=== PATIENT | male | born 1965 | race Caucasian/White ===

== ENCOUNTER 2020-10-14 11:46 | Outpatient (REF) | payer OTHER, SELFPAY | END 2020-10-14 11:47 | disposition home or self-care (01) | LOC: HO.WFDLDS 11:46 | PROVIDERS: Visit Provider Internal Medicine | DX: Z20.822 Contact with and (suspected) exposure to COVID-19 (principal) | CPT/HCPCS: 36415; C9803; U0003 ==

== ENCOUNTER 2020-12-27 10:39 | Outpatient (REF) | payer OTHER, SELFPAY | END 2020-12-27 10:40 | disposition home or self-care (01) | LOC: HO.WFDLDS 10:39 | PROVIDERS: Visit Provider Internal Medicine | DX: Z20.822 Contact with and (suspected) exposure to COVID-19 (principal) | CPT/HCPCS: C9803; U0003; U0005 ==